=== PATIENT | male | born 1985 | race Two or more races ===

== ENCOUNTER 2016-05-19 10:49 | Emergency (ER) | payer OTHER ==
[~2016-05-19] VITALS: Ht 167.6 cm; Wt 81.6 kg
[2016-05-19] MEDS ORDERED: ONDANSETRON ODT 4 MG TAB PO ONE ×2 (12:00→14:30)
[2016-05-19] MEDS ORDERED: TETANUS-DIPTH-ACEL PERTUSSIS 0.5ML SYRG IM ONE (12:00)
[2016-05-19] MEDS ORDERED: HYDROmorphone HCL 2 MG/ML VL IM ONE ×2 (12:00→12:45)
[2016-05-19] MEDS ORDERED: HYDROmorphone HCL 2 MG/ML VL ONE (12:39)
[2016-05-19] MEDS ORDERED: cefTRIAXone SOD 1,000 MG VL IM ONE (13:15)
[2016-05-19 14:02] VITALS: BP 116/67
== END 2016-05-19 14:28 | disposition home or self-care (01) ==
LOC: ER 10:58
DX: S62.327A Displaced fracture of shaft of fifth metacarpal bone, left hand, initial encounter for closed fracture (principal); S61.412A Laceration without foreign body of left hand, initial encounter; W22.8XXA Striking against or struck by other objects, initial encounter; Y93.89 Activity, other specified; Y99.8 Other external cause status; Y92.89 Other specified places as the place of occurrence of the external cause
CPT/HCPCS: 12004; 73130; 90471; 90715; 96372; 99284; J0696; J1170; Q0162

== ENCOUNTER 2016-05-23 13:13 | Emergency (ER) | payer OTHER ==
[~2016-05-23] VITALS: Ht 167.6 cm; Wt 77.1 kg
[2016-05-23 16:05] VITALS: BP 114/85
== END 2016-05-23 17:07 | disposition home or self-care (01) ==
LOC: ER 13:15
DX: S61.412D Laceration without foreign body of left hand, subsequent encounter (principal)
CPT/HCPCS: 99282; A4565